=== PATIENT | female | born 2000 | race Caucasian/White ===

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

== ENCOUNTER → 2018-01-29 | Outpatient (CLI) | payer OTHER ==
[2018-01-29 12:50] LABS: Glucose 3 Hour, Gest 81 mg/dL
== END ==
LOC: LABWHC1 08:17
PROVIDERS: ATTEND Obstetrics & Gynecology
DX: O99.810 Abnormal glucose complicating pregnancy (principal); Z3A.00 Weeks of gestation of pregnancy not specified
CPT/HCPCS: 36415; 82951; 82952

== ENCOUNTER → 2018-02-21 | Outpatient (CLI) | payer OTHER ==
[2018-02-21 10:23] LABS: Collection Time,Urine 24 hrs; Total Volume 24 Hour,Urine 2400 mls (800-1800)
[2018-02-21 10:42] LABS: Albumin 2.9 g/dL (3.5-5.0); Bilirubin, Delta 0.2 mg/dL (0.0-0.2); Bilirubin,Unconjugated 0.1 mg/dL (0.0-1.1); Total Bilirubin 0.3 mg/dL (0.2-1.3); Total Protein 5.9 g/dL (6.3-8.2)
[2018-02-21 11:04] LABS: Total Protein 24 Hour,Urine 192 mg/24hr (42.0-225.0)
[2018-02-21 15:21] LABS: Creatinine,Urine Random 94.9 mg/dL
== END | disposition home or self-care (01) ==
LOC: LABWHC1 09:35
PROVIDERS: ATTEND Midwife
DX: O13.9 Gestational [pregnancy-induced] hypertension without significant proteinuria, unspecified trimester (principal); Z3A.00 Weeks of gestation of pregnancy not specified
CPT/HCPCS: 36415; 80076; 81050; 82570; 84156

== ENCOUNTER 2018-11-26 09:16 | Emergency (ER) | payer OTHER ==
[2018-11-26 09:22] VITALS: PULSE 75
[2018-11-26] MEDS ORDERED: SODIUM CHLORIDE 0.9% 1,000 ML IV STA (09:29)
[2018-11-26] MEDS ORDERED: diphenhydrAMINE 50 MG/ML 1 ML VIAL IVP STA (09:29)
[2018-11-26] MEDS ORDERED: KETOROLAC 30 MG/ML 1 ML VIAL IVP STA (09:29)
[2018-11-26] MEDS ORDERED: METOCLOPRAMIDE 5 MG/ML 2 ML VIAL IVP STA (09:29)
--- NOTE | 2018-11-26 09:32 | ED ---
General Adult HPI - General Chief complaint: Headache Stated complaint: Headache Source: patient, RN notes reviewed, old records reviewed Mode of arrival: ambulatory Limitations: no limitations - History of Present Illness Initial comments: Patient 18-year-old female seemed to be a past medical history for migraines, presenting to the emergency room today with a chief complaint of migraine headache that is lasted for 1 week. Patient does admit that is located on the sides of her head. Patient states that does feel pressure like. Currently rates it a 5/10. Patient states that does have some photosensitivity. Does admit some nausea. States his symptoms are consistent with migraines that she' s had in the past. Denies any other complaints or symptoms. Patient denies any recent fever, chills, shortness of breath, chest pain, back pain, abdominal pain , vomiting, numbness or tingling, dysuria or hematuria, constipation or diarrhea , visual changes, or any other complaints. - Related Data Home Medications Medication Instructions Recorded Confirmed Acetaminophen [Tylenol Extra 1,000 mg PO BID PRN 10/07/17 11/26/18 Strength] Allergies Allergy/AdvReac Type Severity Reaction Status Date / Time brunson Allergy Rash/Hives Verified 11/26/18 09:30 topiramate [From Topamax] Allergy Unknown Verified 11/26/18 09:30 sumatriptan [From Imitrex] AdvReac Unknown Verified 11/26/18 09:30 Review of Systems ROS Statement: Those systems with pertinent positive or pertinent negative responses have been documented in the HPI. ROS Other: All systems not noted in ROS Statement are negative. Past Medical History Past Medical History: Asthma Additional Past Medical History / Comment(s): MIGRAINES History of Any Multi-Drug Resistant Organisms: None Reported Past Surgical History: No Surgical Hx Reported Past Psychological History: Anxiety, Depression, PTSD Smoking Status: Current some day smoker Past Alcohol Use History: None Reported Past Drug Use History: None Reported General Exam - General Exam Comments Initial Comments: General: The patient is awake and alert, in no distress, and does not appear acutely ill. Eye: Pupils are equal, round and reactive to light, extra-ocular movements are intact. No nystagmus. There is normal conjunctiva bilaterally. No signs of icterus. Ears, nose, mouth and throat: There are moist mucous membranes and no oral lesions. Neck: The neck is supple, there is no tenderness or JVD. Cardiovascular: There is a regular rate and rhythm. No murmur, rub or gallop is appreciated. Respiratory: Lungs are clear to auscultation, respirations are non-labored, breath sounds are equal. No wheezes, stridor, rales, or rhonchi Musculoskeletal: Normal ROM, no tenderness. Neurological: A&O x 3. CN II-XII intact, There are no obvious motor or sensory deficits. Coordination appears grossly intact. Speech is normal. Skin: Skin is warm and dry and no rashes or lesions are noted. Psychiatric: Cooperative, appropriate mood & affect, normal judgment. Limitations: no limitations Course Vital Signs 11/26/18 09:18 Temperature 97.4 F L Pulse Rate 75 Respiratory 18 Rate Blood Pressure 117/75 O2 Sat by Pulse 98 Oximetry Medical Decision Making - Medical Decision Making Patient reexamined at this time shows no signs of distress. She does admit to feeling better after Toradol, Reglan, Benadryl, IV fluids here in the emergency room. She will be discharged home continued on ibuprofen. Advised return for any other concerns. Disposition Clinical Impression: Migraine Disposition: HOME SELF-CARE Condition: Good Instructions: Migraine Headache (ED) Additional Instructions: Please use medication as discussed. Please follow-up with family doctor in the next 2 days of symptoms have not improved. Please return to emergency room if the symptoms increase or worsen or for any other concerns. Is patient prescribed a controlled substance at d/c from ED?: No Referrals: Irwin Ortiz DO [Primary Care Provider] - 1-2 days Time of Disposition: 11:12
[2018-11-26 12:07] VITALS: BP 114/71; RESP 15; TEMP 98.2
== END 2018-11-26 12:07 | disposition home or self-care (01) ==
LOC: EC 09:16
DX: G43.909 Migraine, unspecified, not intractable, without status migrainosus (principal); F17.200 Nicotine dependence, unspecified, uncomplicated; Z88.8 Allergy status to other drugs, medicaments and biological substances; Z91.018 Allergy to other foods
CPT/HCPCS: 99283; 96374; 96375 ×2; 96361; J1200; J2765; J1885

== ENCOUNTER 2024-12-19 10:46 | Emergency (ER) | payer BC ==
[2024-12-19 11:17] VITALS: PULSE 78; RESP 18; TEMP 98.4
--- NOTE | 2024-12-19 11:45 | ED ---
Female Urogenital HPI - General Chief complaint: Urogenital Stated complaint: 12 weeks pregant pelvic pain Time Seen by Provider: 12/19/24 11:43 Source: patient, RN notes reviewed Mode of arrival: ambulatory Limitations: no limitations - History of Present Illness Initial comments: 24-year-old A0 approximately 12 weeks gestation presenting to the ER for evaluation of pelvic pain. Patient reports since about 8 AM today she has been experiencing a sharp crampy pelvic discomfort. She does report a shooting sensation to her left lower abdomen. She denies any vaginal bleeding, vaginal discharge, dysuria. Patient denies any nausea or vomiting out of the norm. Patient does admit to a history of IBS and states she has not been taking her medications due to . She has not taken anything for pain at this time. Patient reports she is following up with [facility], Dr. Olsen. She is scheduled to see her next week. Patient is currently rating her pain a 5 out of 10. She has no other complaints at this time. - Related Data Home Medications Medication Instructions Recorded Confirmed Acetaminophen [Tylenol Extra 1,000 mg PO BID PRN 10/07/17 11/26/18 Strength] Allergies Allergy/AdvReac Type Severity Reaction Status Date / Time brunson Allergy Rash/Hives Verified 12/19/24 11:12 topiramate [From Topamax] Allergy Unknown Verified 12/19/24 11:12 sumatriptan [From Imitrex] AdvReac Unknown Verified 12/19/24 11:12 Review of Systems ROS Statement: Those systems with pertinent positive or pertinent negative responses have been documented in the HPI. ROS Other: All systems not noted in ROS Statement are negative. Past Medical History Past Medical History: Asthma Additional Past Medical History / Comment(s): MIGRAINES History of Any Multi-Drug Resistant Organisms: None Reported Past Surgical History: No Surgical Hx Reported Past Psychological History: Anxiety, Depression, PTSD Smoking Status: Never smoker Past Alcohol Use History: None Reported Past Drug Use History: None Reported General Exam Limitations: no limitations General appearance: alert, in no apparent distress Respiratory exam: Present: normal lung sounds bilaterally. Absent: respiratory distress, wheezes, rales, rhonchi, stridor Cardiovascular Exam: Present: regular rate, normal rhythm, normal heart sounds. Absent: systolic murmur, diastolic murmur, rubs, gallop, clicks GI/Abdominal exam: Present: soft, normal bowel sounds. Absent: distended, tenderness, guarding, rebound, rigid External exam: Present: normal external exam Speculum exam: Present: cervical discharge (thick white) By manual exam: Present: normal by manual exam Neurological exam: Present: alert, oriented X3, CN II-XII intact Skin exam: Present: warm, dry, intact, normal color. Absent: rash Course Vital Signs 12/19/24 12/19/24 11:13 14:06 Temperature 98.4 F Pulse Rate 78 78 Respiratory 18 18 Rate Blood Pressure 104/63 134/77 O2 Sat by Pulse 97 98 Oximetry - Reevaluation(s) Reevaluation #1: Pelvic exam chaperoned by Tomasa Castaneda RN Medical Decision Making - Medical Decision Making Was pt. sent in by a medical professional or institution (, PA, [facility], urgent care, hospital, or custodial...) When possible be specific @ -No Did you speak to anyone other than the patient for history (EMS, parent, family, police, friend...)? What history was obtained from this source @ -No Did you review nursing and triage notes (agree or disagree)? Why? @ -I reviewed and agree with nursing and triage notes Were old charts reviewed (outside hosp., previous admission, EMS record, old EKG, old radiological studies, urgent care reports/EKG's, custodial records)? Report findings @ -No old charts were reviewed Differential Diagnosis (chest pain, altered mental status, abdominal pain women, abdominal pain men, vaginal bleeding, weakness, fever, dyspnea, syncope, headache, dizziness, GI bleed, back pain, seizure, CVA, palpatations, mental health, musculoskeletal)? @ -Differential Vaginal Bleeding:Spontaneous , threatened , molar , ectopic , bloody show, incompetent cervix, abruptioplacenta, placenta previa, uterine rupture, dysfunctional uterine bleeding, hemorrhage, uterine fibroids, this is not meant to be an all-inclusive list. EKG interpreted by me (3pts min.). @ -None done X-rays interpreted by me (1pt min.). @ -None done CT interpreted by me (1pt min.). @ -None done U/S interpreted by me (1pt. min.). @ - ultrasound showing a single IUP gestation 12 weeks 4 days. Note that there is no movement present. Heart rate 143 bpm. What testing was considered but not performed or refused? (CT, X-rays, U/S, labs)? Why? @ -None What meds were considered but not given or refused? Why? @ -Rhogam considered but not indicated as patient reporting no vaginal bleeding and no bleeding on exam. Did you discuss the management of the patient with other professionals (professionals i.e. , PA, [facility], lab, RT, psych nurse, social security assessor, sewing demonstrator, teacher, parole hearing officer, bilingual patient support caseworker)? Give summary @ -No Was smoking cessation discussed for >3mins.? @ -No Was critical care preformed (if so, how long)? @ -No Were there social determinants of health that impacted care today? How? (Homelessness, low income, unemployed, alcoholism, drug addiction, transportation, low edu. Level, literacy, decrease access to med. care, alf, rehab)? @ -No Was there de-escalation of care discussed even if they declined (Discuss DNR or withdrawal of care, Hospice)? DNR status @ -No What co-morbidities impacted this encounter? (DM, HTN, Smoking, COPD, CAD, Cancer, CVA, ARF, Chemo, Hep., AIDS, mental health diagnosis, sleep apnea, morbid obesity)? @ - Was patient admitted / discharged? Hospital course, mention meds given and route, prescriptions, significant lab abnormalities, going to OR and other pertinent info. @ -Discharge. 24-year-old female presented to the ER for evaluation of pelvic pain. Patient is approximately 12 weeks gestation. Upon rooming, history and physical exam completed. Vitals within acceptable limits. Patient no signs of acute distress nontoxic-appearing. Abdominal exam benign. Pelvic exam significant for white thick cervical discharge. No bleeding or cervical motion tenderness. Pelvic exam chaperoned by Tomasa Castaneda RN. Laboratory studies along with ultrasound will be obtained, patient is agreeable. CBC unremarkable. CMP showed a sodium 135 otherwise unimpressive. Urine analysis with trace protein. No evidence of infection. Patient given 1 L IV fluids along with Tylenol in the ER. ultrasound showing a single IUP measuring 12 weeks 4 days. Heart rate 143 bpm. There is no movement noted. No subchorionic bleed. Upon reevaluation, patient resting upon exam no signs of acute distress. Results discussed with patient, all questions answered. I advised her to follow-up closely with [facility]. Patient reports appointment with Dr. Olsen next week. Strict return parameters discussed. Patient discharged in stable condition with follow-up to PCP. Patient verbally expressed understanding and agreement with care plan. Case discussed with ED attending, Dr. Parham. Undiagnosed new problem with uncertain prognosis? @ -No Drug Therapy requiring intensive monitoring for toxicity (Heparin, Nitro, Insulin, Cardizem)? @ -No Were any procedures done? @ -No Diagnosis/symptom? @ -Pelvic pain in Acute, or Chronic, or Acute on Chronic? @ -Acute Uncomplicated (without systemic symptoms) or Complicated (systemic symptoms)? @ -Uncomplicated Side effects of treatment? @ -No Exacerbation, Progression, or Severe Exacerbation? @ -No Poses a threat to life or bodily function? How? (Chest pain, USA, NM, pneumonia, PE, COPD, DKA, ARF, appy, cholecystitis, CVA, Diverticulitis, Homicidal, Suicidal, threat to staff... and all critical care pts) @ -No - Lab Data Result diagrams: 12/19/24 11:53 12/19/24 11:53 Lab Results 12/19/24 12/19/24 12/19/24 Range/Units 11:53 11:53 11:53 WBC 10.1 (3.8-10.6) k/uL RBC 3.97 (3.80-5.40) m/uL Hgb 11.9 (11.4-16.0) gm/dL Hct 35.4 (34.0-46.0) % MCV 89.1 (80.0-100.0) fL MCH 30.0 (25.0-35.0) pg MCHC 33.7 (31.0-37.0) g/dL RDW 13.4 (11.5-15.5) % Plt Count 241 (150-450) k/uL MPV 6.7 Neutrophils % 76 % Lymphocytes % 18 % Monocytes % 4 % Eosinophils % 1 % Basophils % 0 % Neutrophils # 7.7 (1.3-7.7) k/uL Lymphocytes # 1.8 (1.0-4.8) k/uL Monocytes # 0.5 (0-1.0) k/uL Eosinophils # 0.1 (0-0.7) k/uL Basophils # 0.0 (0-0.2) k/uL Sodium 135 L (137-145) mmol/L Potassium 3.8 (3.5-5.1) mmol/L Chloride 106 (98-107) mmol/L Carbon Dioxide 23 (22-30) mmol/L Anion Gap 6 mmol/L BUN 10 (7-17) mg/dL Creatinine 0.44 L (0.52-1.04) mg/dL Est GFR (CKD-EPI)AfAm >90 (>60 ml/min/1.73 sqM) Est GFR (CKD-EPI)NonAf >90 (>60 ml/min/1.73 sqM) Glucose 96 (74-99) mg/dL Calcium 9.3 (8.4-10.2) mg/dL Total Bilirubin 0.4 (0.2-1.3) mg/dL AST 25 (14-36) U/L ALT 39 H (4-34) U/L Alkaline Phosphatase 40 (38-126) U/L Total Protein 6.2 L (6.3-8.2) g/dL Albumin 3.4 L (3.5-5.0) g/dL Urine Color Yellow Urine Appearance Clear (Clear) Urine pH 6.0 (5.0-8.0) Ur Specific [place] 1.037 H (1.001-1.035) Urine Protein Trace H (Negative) Urine Glucose (UA) Negative (Negative) Urine Ketones Negative (Negative) Urine Blood Negative (Negative) Urine Nitrite Negative (Negative) Urine Bilirubin Negative (Negative) Urine Urobilinogen 2.0 (<2.0) mg/dL Ur Leukocyte Esterase Negative (Negative) - Radiology Data Radiology results: report reviewed, image reviewed Disposition Clinical Impression: Pelvic pain during Disposition: HOME SELF-CARE Condition: Stable Additional Instructions: Follow-up with Dr. Olsen as scheduled. Return to the ER for any new or worsening concerns. Is patient prescribed a controlled substance at d/c from ED?: No Referrals: Mane Dubon MD [Primary Care Provider] - 1-2 days Verito Olsen DO [Doctor of Osteopathic Medicine] - 1-2 days Time of Disposition: 14:01
[2024-12-19] MEDS: SODIUM CHLORIDE 0.9% 1,000 ML IV STA (11:57)
[2024-12-19] MEDS: ACETAMINOPHEN TAB 325 MG TAB PO STA (11:57)
[2024-12-19 12:10] LABS: Basophils % (A) 0 %; Eosinophils # (A) 0.1 k/uL (0-0.7); Eosinophils % (A) 1 %; HCT 35.4 % (34.0-46.0); HGB 11.9 gm/dL (11.4-16.0); Lymphocytes # (A) 1.8 k/uL (1.0-4.8); Lymphocytes % (A) 18 %; MCHC 33.7 g/dL (31.0-37.0); MCV 89.1 fL (80.0-100.0); Mean Platelet Volume 6.7; Monocytes # (A) 0.5 k/uL (0-1.0); Monocytes % (A) 4 %; Neutrophils # (A) 7.7 k/uL (1.3-7.7); Neutrophils % (A) 76 %; Platelet Count 241 k/uL (150-450); RBC 3.97 m/uL (3.80-5.40); RDW 13.4 % (11.5-15.5); WBC 10.1 k/uL (3.8-10.6)
[2024-12-19 12:24] LABS: ALT 39 U/L (4-34); AST 25 U/L (14-36); African American GFR (CKD) >90 (>60 ml/min/1.73 sqM); Albumin 3.4 g/dL (3.5-5.0); Alkaline Phosphatase 40 U/L (38-126); Anion Gap 6 mmol/L; Blood Urea Nitrogen 10 mg/dL (7-17); Calcium 9.3 mg/dL (8.4-10.2); Carbon Dioxide 23 mmol/L (22-30); Chloride 106 mmol/L (98-107); Glucose 96 mg/dL (74-99); Non-African American GFR(CKD) >90 (>60 ml/min/1.73 sqM); Potassium 3.8 mmol/L (3.5-5.1); Sodium 135 mmol/L (137-145); Total Bilirubin 0.4 mg/dL (0.2-1.3); Total Protein 6.2 g/dL (6.3-8.2)
[2024-12-19 12:29] LABS: Appearance,Urine Clear (Clear); Bilirubin,Urine Negative (Negative); Blood,Urine Negative (Negative); Color,Urine Yellow; Glucose,Urine (UA) Negative (Negative); Ketones,Urine Negative (Negative); Leukocyte Esterase,Urine Negative (Negative); Nitrite,Urine Negative (Negative); Protein,Urine Trace (Negative); Specific Gravity,Urine 1.037 (1.001-1.035)
--- NOTE | 2024-12-19 13:26 | US ---
EXAMINATION TYPE: Transabdominal DATE OF EXAM: 12/19/2024 1:08 PM COMPARISON: No relevant priors CLINICAL INDICATION: Female, 24 years old with history of pelvic pain rad LLQ 12 weeks gest; Hx of cr amping throughout but LLQ pain started today; Denies bleeding or any other relevant signs o r symptoms; Former smoker TECHNIQUE: Transabdominal (TA) with grayscale and color Doppler imaging including first trimester pre gnancy. FINDINGS: EXAM MEASUREMENTS: GESTATIONAL AGE / DATING Physician Established: (12 weeks/2 days) EDC: 07/01/2025 Dates by LMP: (12 weeks/2 days) EDC: 07/01/2025 Dates by First Scan: (12 weeks/2 days) EDC: 07/01/2025 Dates by Current Scan for: (12 weeks/4 days) EDC: 06/29/2025 MATERNAL ANATOMY Uterus: 17.3 x 5.8 x 12.5 cm Right Ovary: 3.8 x 2.9 x 2.7 cm Left Ovary: 2.6 x 1.4 x 2.4 cm Post CDS / Adnexa: WNL Presence of free fluid: No Presence of corpus luteal cyst: Right ovary Presence of subchorionic bleed: No GESTATION / SURVEY CRL: 6.10 (12 weeks/4 days) Gestational Sac morphology: unremarkable Gestational Sac MSD: NA ( weeks/ days) Yolk Sac (normal less than 6mm): 4 mm Cardiac Activity/Heart Rate: 143 bpm Rhythm: Normal IUP: Viable IUP Nuchal Translucency 10-14wks (normal less than 3mm): Unable to obtain due to movement Age Appropriate Anatomy Cord Insertion: Too early to visualize Limbs: Visualized Calvarium: Visualized Date of LMP: Unknown Beta HcG (if available): Not done by ER staff IMPRESSION: 1. Single viable intrauterine . Note that no movement was detected. 2. Normal uterus and no subchorionic bleed. 3. Exam was not performed for analysis of anatomy or anomalies. anomalies cannot be excluded with this exam. [facility], , 12/19/2024 1:23 PM
[2024-12-19 14:07] VITALS: BP 134/77
== END 2024-12-19 14:07 | disposition home or self-care (01) ==
LOC: EC 10:46
DX: O26.891 Other specified pregnancy related conditions, first trimester (principal); R10.2 Pelvic and perineal pain; Z91.018 Allergy to other foods; Z88.8 Allergy status to other drugs, medicaments and biological substances; Z3A.12 12 weeks gestation of pregnancy
CPT/HCPCS: 36415; 76801; 80053; 81003; 85025; 93975; 96360; 96361; 99284

== ENCOUNTER 2025-05-13 09:07 | Outpatient (CLI) | payer BC ==
[2025-05-13 09:35] VITALS: BP 111/58; PULSE 83; RESP 16; TEMP 97.6
--- NOTE | 2025-05-28 11:38 | P.MSEPDOC ---
Presenting Problems - Arrival Data Date of Arrival on Unit: 05/13/25 Time of Arrival on Unit: 09:07 Mode of Transport: Ambulatory - Complaint OB-Reason for Admission/Chief Complaint: Decreased Movement Comment: movement perceived less strong as week gone by Medical History - Information : 2 Para: 1 Term: 1 : 0 Abortions: Spontaneous or Elective: 0 Number of Living Children: 1 - Gestational Age Gestational Age by DELICIA (wks/days): 33 Weeks and 0 Days Review of Systems - Review of Systems Constitutional: No problems Breast: No problems ENT: No problems Cardiovascular: No problems Respiratory: No problems Gastrointestinal: No problems Genitourinary: No problems Musculoskeletal: No problems Neurological: No problems Skin: No problems Vital Signs - Temperature Temperature: 97.6 F Temperature Source: Temporal Artery Scan - Pulse Right Sitting Pulse Rate: 83 Pulse Assessment Method: Automatic Cuff - Respirations Respiratory Rate: 16 Oxygen Delivery Method: Room Air O2 Sat by Pulse Oximetry: 97 - Blood Pressure Right Arm Sitting Blood Pressure: 111/58 Blood Pressure Mean: 75 Blood Pressure Source: Automatic Cuff Medical Screen Scoring - Uterine Contractions Frequency From (mins): 0 Frequency To (mins): 0 Duration From (seconds): 0 Duration To (seconds): 0 - Assessment - Baby A Baseline FHR: 140 Heart Rate - NICHD Category: Category I (Normal) NST: Reactive Physician Notification - Physician Notified Physician Notified Date: 05/13/25 Physician Notified Time: 09:42 Physician: Chevy Gregory New Order Received: Yes (dc with instruction) Maternal Triage Index - Maternal Triage Index Presenting for scheduled procedure w/no complaint: No - Stat/Priority 1 Stat Priority 1: No - Urgent/Priority 2 Urgent Priority 2: Yes Provider Notified: Chevy Gregory Provider Notified Time: 09:42 Criteria Met for Priority 2: 33.0, decreased movement Disposition - Disposition OB Disposition: Triage, Discharge to home, Written follow up instructions reviewed Discharge Date: 05/13/25 Discharge Time: 09:45 I agree with the RN Medical Screening Exam: Yes Physician's MSE Comment: I have neither seen or examined the patient. Case reviewed; plan agreed upon as documented in EMR&OBIX.: Yes Diagnosis: RELATED CONDITIONS, UNSPECIFIED, THIRD TRIMESTER
== END 2025-05-13 09:45 | disposition home or self-care (01) ==
LOC: FBPOP 09:07
PROVIDERS: ATTEND Obstetrics & Gynecology
DX: O36.8130 Decreased fetal movements, third trimester, not applicable or unspecified (principal); O99.333 Smoking (tobacco) complicating pregnancy, third trimester; F17.200 Nicotine dependence, unspecified, uncomplicated; Z3A.33 33 weeks gestation of pregnancy; Z88.6 Allergy status to analgesic agent; Z88.8 Allergy status to other drugs, medicaments and biological substances; Z91.018 Allergy to other foods
CPT/HCPCS: 59025; 99213